=== PATIENT | male | born 1970 | race Hispanic/Latino ===

== ENCOUNTER 2019-09-01 15:58 | Emergency (ER) | payer SELFPAY ==
[~2019-09-01] VITALS: Ht 167.6 cm; Wt 103.4 kg
[2019-09-01] MEDS ORDERED: HYDROCODONE/APAP 10MG-325MG TAB PO ONE (16:30)
[2019-09-01] MEDS ORDERED: DEXAMETHASONE SOD PHOS 10 MG/1 ML VIAL IM ONE (16:30)
[2019-09-01] MEDS ORDERED: CYCLOBENZAPRINE HCL 10 MG TAB PO ONE (16:30)
[2019-09-01] MEDS ORDERED: KETOROLAC TROMETHAMINE 60 MG/2 ML VIAL IM ONE (16:30)
== END 2019-09-01 16:11 | disposition home or self-care (01) ==
LOC: ER 15:58
DX: S39.012A Strain of muscle, fascia and tendon of lower back, initial encounter (principal); E66.9 Obesity, unspecified
CPT/HCPCS: 99283; J1100; J1885

== ENCOUNTER 2020-09-01 01:51 | Emergency (ER) | payer SELFPAY ==
[~2020-09-01] VITALS: Ht 167.6 cm; Wt 103.4 kg
[2020-09-01] MEDS ORDERED: DECADRON4 M1 PO (02:30)
== END 2020-09-01 02:41 | disposition home or self-care (01) ==
LOC: ER 02:10
DX: U07.1 COVID-19 (principal); E66.9 Obesity, unspecified
CPT/HCPCS: 99282